=== PATIENT | male | born 1995 | race Two or more races ===

== ENCOUNTER 2018-06-28 21:51 | Emergency (ER) | payer OTHER ==
[2018-06-28 21:58] VITALS: BP 117/67
--- NOTE | 2018-06-28 22:09 | EDPHY ---
H & P Stated Complaint: L shoulder inj, fell Time Seen by Provider: 06/28/18 22:09 HPI/ROS: HPI CHIEF COMPLAINT: Left shoulder pain. HISTORY OF PRESENT ILLNESS: 23-year-old male, otherwise healthy no significant medical history presents emergency room after he fell onto his left shoulder. He now has left shoulder pain. He thinks it may be dislocated. Denies any numbness or tingling. Denies arm weakness. Pain located left lateral shoulder. This happened 2 hr ago. Past Medical History: Denies significant medical history Past Surgical History: No significant surgical history Social History: Denies drugs alcohol tobacco. Family History: Noncontributory ROS REVIEW OF SYSTEMS: 10 Systems were reviewed and negative with the exception of the elements mentioned in the history of present illness. Exam Constitutional triage nursing summary reviewed, vital signs reviewed, awake/ alert. Eyes normal conjunctivae and sclera, EOMI, PERRLA. HENT normal inspection, atraumatic, moist mucus membranes, no epistaxis, neck supple/ no meningismus, no raccoon eyes. Respiratory clear to auscultation bilaterally, normal breath sounds, no respiratory distress, no wheezing. Cardiovascular rate normal, regular rhythm, no murmur, no edema, distal pulses normal. Gastrointestinal soft, non-tender, no rebound, no guarding, normal bowel sounds, no distension, no pulsatile mass. Genitourinary no CVA tenderness. Musculoskeletal left upper extremity: Good distal pulse. Good cap refill. Limited range of motion due to pain to left shoulder. no midline vertebral tenderness, full range of motion, no calf swelling, no tenderness of extremities, no meningismus, good pulses, neurovascularly intact. Skin pink, warm, & dry, no rash, skin atraumatic. Neurologic awake, alert and oriented x 3, AAOx3, moves all 4 extremities equally, motor intact, sensory intact, CN II-XII intact, normal cerebellar, normal vision, normal speech. Psychiatric normal mood/affect. Heme/Lymph/Immune no lymphadenopathy. Differential Diagnosis: Includes but is not limited to in a particular order left shoulder dislocation left shoulder contusion, AC joint separation, contusion Medical Decision Making: Plan for this patient x-ray left shoulder. Ice pack, anti-inflammatory pain medicine and re-evaluate. Re-evaluation: 2228: Patient arrived to the emergency room complaining of left shoulder pain and possible dislocation. I was able to gently manipulate his left shoulder and most likely this reduced his what appeared to be like anterior shoulder dislocation. X-ray left shoulder reviewed. This shows no evidence of acute fracture. Good anatomical alignment. Patient's left arm is neurovascular intact. Patient been placed in a sling. Recommend ice pack, recommend anti- inflammatory pain medicine. Return precautions discussed with him. Patient placed in a sling. Recommend orthopedic follow-up. Source: Patient - Personal History Current Tetanus Diphtheria and Acellular Pertussis (TDAP): Yes - Medical/Surgical History Hx Asthma: No Hx Chronic Respiratory Disease: No Hx Diabetes: No Hx Cardiac Disease: No Hx Renal Disease: No Hx Cirrhosis: No Hx Alcoholism: No Hx HIV/AIDS: No Hx Splenectomy or Spleen Trauma: No Other PMH: Denies - Social History Smoking Status: Never smoked Constitutional: Initial Vital Signs Temperature (C) 36.8 C 06/28/18 21:53 Heart Rate 81 06/28/18 21:53 Respiratory Rate 18 06/28/18 21:53 Blood Pressure 117/67 06/28/18 21:53 O2 Sat (%) 99 06/28/18 21:53 O2 Delivery Mode Room Air Allergies/Adverse Reactions: No Known Allergies Allergy (Unverified 06/28/18 21:57) Medical Decision Making - Data Points Medications Given: Discontinued Medications Ibuprofen (Motrin) 800 mg PO EDNOW ONE Stop: 06/28/18 22:14 Last Admin: 06/28/18 22:22 Dose: 800 mg Departure - Departure Disposition: Home, Routine, Self-Care Clinical Impression: Shoulder dislocation Condition: Good Instructions: Shoulder Dislocation (ED) Additional Instructions: 1. Sling for comfort and immobilization 2. Ice pack for pain control 3. Ibuprofen for pain 4. Follow up with Orthopedics. 5. Return to the ER if worse Referrals: NONE *PRIMARY CARE P,. [Primary Care Provider] - As per Instructions
[2018-06-28] MEDS ORDERED: IBUPROFEN 800 MG TAB PO ONE (22:13)
== END 2018-06-28 22:38 | disposition home or self-care (01) ==
PROC: 0RSKXZZ Reposition Left Shoulder Joint, External Approach (ICD-10-PCS; principal; 2018-06-28)
DX: S43.005A Unspecified dislocation of left shoulder joint, initial encounter (principal); W19.XXXA Unspecified fall, initial encounter; Y92.9 Unspecified place or not applicable; Y93.9 Activity, unspecified; Y99.9 Unspecified external cause status
CPT/HCPCS: A4565